=== PATIENT | male | born 1960 | race Caucasian/White ===

== ENCOUNTER 2018-10-20 15:31 | Emergency (ER) | payer OTHER ==
[~2018-10-20] VITALS: Ht 175.3 cm; Wt 79.4 kg
[2018-10-20 15:43] VITALS: Ht 175.3 cm; Wt 79.4 kg
[2018-10-20 17:21] VITALS: BP 140/74
== END 2018-10-20 17:21 | disposition home or self-care (01) ==
LOC: ED 15:31
DX: S76.111A Strain of right quadriceps muscle, fascia and tendon, initial encounter (principal); W01.0XXA Fall on same level from slipping, tripping and stumbling without subsequent striking against object, initial encounter; Y93.89 Activity, other specified; Y92.89 Other specified places as the place of occurrence of the external cause; Y99.8 Other external cause status